=== PATIENT | female | born 1990 | race Caucasian/White ===

== ENCOUNTER 2020-05-01 11:22 | Emergency (ER) | payer OTHER ==
[~2020-05-01] VITALS: Ht 162.6 cm; Wt 72.6 kg
[2020-05-01] MEDS ORDERED: IBUPROFEN 800800 MG PO ×2 (14:05→14:11)
[2020-05-01] MEDS ORDERED: FLEXERIL PO (14:05)
[2020-05-01] MEDS ORDERED: MEDROLDOSEPACK PO (14:05)
[2020-05-01] MEDS ORDERED: ROBAXIN 750 MG750 MG PO (14:10)
[2020-05-01] MEDS ORDERED: TRAMADOL 50 MG50 MG PO (14:11)
[2020-05-01 14:32] VITALS: BP 144/65
== END 2020-05-01 14:34 | disposition home or self-care (01) ==
LOC: M.ERS 11:22
DX: M54.31 Sciatica, right side (principal)